=== PATIENT | female | born 1980 | race Caucasian/White ===

== ENCOUNTER 2019-05-07 13:21 | Day surgery (SDC) | payer OTHER ==
[~2019-05-07 13:21] MED LIST: ACIDO FOLICO; PRENATAL + DHA1 EAC1
== END 2019-05-07 22:20 | disposition home or self-care (01) ==
LOC: CIR.AMB 13:21
DX: O02.1 Missed abortion (principal)

== ENCOUNTER → 2019-09-17 11:58 | Outpatient (CLI) | payer OTHER | END | disposition home or self-care (01) | LOC: LAB 11:58 | DX: N91.1 Secondary amenorrhea (principal) ==

== ENCOUNTER 2019-09-21 06:59 | Outpatient (CLI) | payer OTHER | END 2019-09-21 07:06 | disposition home or self-care (01) | LOC: LAB 06:59 | DX: N91.1 Secondary amenorrhea (principal) ==

== ENCOUNTER 2019-10-04 11:45 | Day surgery (SDC) | payer OTHER | END 2019-10-04 18:50 | disposition home or self-care (01) | LOC: CIR.AMB 11:45 | DX: O02.1 Missed abortion (principal) ==

== ENCOUNTER → 2022-10-21 | Day surgery (SDC) | payer OTHER ==
[~2022-10-21] VITALS: Ht 154.9 cm; Wt 74.4 kg
== END | disposition home or self-care (01) ==
LOC: ER 10-20 23:49 → EDSTATUS 09:30 → SEC-K 09:32 → CIR.AMB 09:32 → O/R 09:32 → ER 09:32 → CIR.AMB 09:32 → O/R 09:48 → SEC-K 09:48 → O/R 20:35
PROVIDERS: ATTEND General Practice
DX: O03.4 Incomplete spontaneous abortion without complication (principal); O72.2 Delayed and secondary postpartum hemorrhage; Z20.822 Contact with and (suspected) exposure to COVID-19